=== PATIENT | female | born 1970 | race Caucasian/White ===

== ENCOUNTER → 2021-04-27 | Outpatient (CLI) | payer OTHER ==
[~2021-04-27] MED LIST: ADDERALL 20 MG20 M1 PO; AUGMENTIN 875875 M1 PO; CELEBREX 200 M200 M1 PO; DEPAKOTE125 MG; FLONASE 0.05%50 MCG NS; LAMICTAL; LAMICTAL100 MG PO; LEVOTHYROXINE0.05 MG PO; LORTAB 5 MG/5001 TA1 PO; MAXALT MLT10 MG PO; MOBIC7.5 MG PO; NEURONTIN600 MG PO; SEROQUEL200 MG PO; TRILIPIX135 MG PO
== END ==
LOC: CAT 08:51
PROVIDERS: ATTEND Family Medicine
DX: Z13.6 Encounter for screening for cardiovascular disorders (principal); I25.10 Atherosclerotic heart disease of native coronary artery without angina pectoris; E78.00 Pure hypercholesterolemia, unspecified